=== PATIENT | male | born 1935 | race Two or more races ===

== ENCOUNTER 2016-11-10 12:27 | Emergency (ER) | payer MEDICARE, MEDICAID ==
[~2016-11-10] VITALS: Ht 162.6 cm; Wt 99.8 kg
[2016-11-10 12:27] VITALS: BP 132/70
--- NOTE | 2016-11-10 12:57 | NUR ---
radiology at bedside for r wrist xray.
== END 2016-11-10 14:01 | disposition home or self-care (01) ==
LOC: ER 12:34
DX: S63.501A Unspecified sprain of right wrist, initial encounter (principal); I10 Essential (primary) hypertension; M19.90 Unspecified osteoarthritis, unspecified site; Z85.038 Personal history of other malignant neoplasm of large intestine; W01.0XXA Fall on same level from slipping, tripping and stumbling without subsequent striking against object, initial encounter; Y93.89 Activity, other specified; Y92.89 Other specified places as the place of occurrence of the external cause; Y99.9 Unspecified external cause status
CPT/HCPCS: 73110; A4606; Z7610